=== PATIENT | male | born 1950 | race Caucasian/White ===

== ENCOUNTER 2021-09-19 10:08 | Outpatient (CLI) | payer OTHER, SELFPAY ==
[2021-09-19 10:33] LABS: Slide Review Reflex No
[2021-09-19 14:08] LABS: Cholesterol* 181 mg/dL (90-199)
[2021-09-19 14:09] LABS: HDL Cholesterol* 95 mg/dL (>=40); LDL Cholesterol Calculated 71 mg/dL (<100); Triglycerides* 76 mg/dL (40-149)
[2021-09-19 14:17] LABS: Basophils Absolute Auto 0.03 K/uL (0.00-0.30); Basophils Percent Auto 0.3 % (0.0-3.0); Eosinophils Percent Auto 3.8 % (0.0-7.0); Hematocrit 42.7 % (37.0-53.0); Immature Granulocytes Abs Auto 0.03 K/uL (0.00-0.30); Lymphocytes Percent Auto 14.8 % (20-44); Mean Corpuscular HGB Conc 35 gm/dL (32-36); Mean Corpuscular Hemoglobin 43 pg (26-34); Mean Corpuscular Volume 121 fL (80-100); Neutrophils Percent Auto 73.8 % (42.0-72.0); Platelet Count* 224 K/uL (140-440); RDW Coefficient of Variation % 16.3 % (11.5-15.5); Red Blood Count 3.52 m/uL (4.30-5.90)
[2021-09-20 06:28] LABS: Glucose* 90 mg/dL (60-115)
== END 2021-09-19 10:09 | disposition home or self-care (01) ==
LOC: LKVREF 10:20
PROVIDERS: PCP Physician Assistant Medical; Visit Provider Physician Assistant Medical
DX: I71.4 Abdominal aortic aneurysm, without rupture (principal); R06.00 Dyspnea, unspecified; E53.8 Deficiency of other specified B group vitamins; F10.10 Alcohol abuse, uncomplicated; J44.9 Chronic obstructive pulmonary disease, unspecified; R29.898 Other symptoms and signs involving the musculoskeletal system; Z13.0 Encounter for screening for diseases of the blood and blood-forming organs and certain disorders involving the immune mechanism; Z13.1 Encounter for screening for diabetes mellitus; Z13.6 Encounter for screening for cardiovascular disorders
CPT/HCPCS: 80061; 82947; 85025

== ENCOUNTER 2021-09-20 14:57 | Outpatient (CLI) | payer OTHER, SELFPAY | END 2021-09-20 14:58 | disposition home or self-care (01) | PROVIDERS: PCP Physician Assistant Medical; Visit Provider Physician Assistant Medical | DX: R06.00 Dyspnea, unspecified (principal) | CPT/HCPCS: 93306 ==

== ENCOUNTER 2022-06-10 13:45 | Outpatient (CLI) | payer OTHER, SELFPAY | END 2022-06-10 13:46 | disposition home or self-care (01) | PROVIDERS: PCP Physician Assistant Medical; Visit Provider Physician Assistant Medical | DX: R20.0 Anesthesia of skin (principal); M79.671 Pain in right foot; M79.672 Pain in left foot; E53.8 Deficiency of other specified B group vitamins; R63.4 Abnormal weight loss; R71.8 Other abnormality of red blood cells | CPT/HCPCS: 80053; 82607; 82746; 84153; 84425; 84439; 84443 ==

== ENCOUNTER 2022-06-26 13:57 | Outpatient (CLI) | payer OTHER, SELFPAY ==
--- NOTE | 2022-06-26 14:00 | CRLHL7_ITS ---
For Patients: As a result of the Century Cures Act, medical imaging exams and procedure reports are released immediately into your electronic medical record. You may view this report before your referring provider. If you have questions, please contact your health care provider. Indication: right hydronephrosis; AAA Technique: Postcontrast CT abdomen and pelvis. 70 cc Isovue 370 intravenous contrast. Please note that all CT scans at this facility use dose modulation, iterative reconstruction, and/or weight-based dosing when appropriate to reduce radiation dose to as low as reasonably achievable. Comparison: 06/18/2022, 05/15/2020 Findings: Linear subsegmental scarring is present in both lower lobes. No pleural effusion. Small subcentimeter benign cysts/hemangiomas are present within the liver. The spleen is normal in size. The gallbladder is normal. No calcified gallstones or biliary obstruction. Mild pancreatic atrophy. Extensive atherosclerotic disease. There is an abdominal aortic aneurysm measuring 4.9 x 5.4 cm, located in the infrarenal aorta. 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 The iliac arteries are normal in caliber. The prostate is mildly prominent. No bladder stone. Sigmoid diverticulosis. No diverticulitis. No bowel obstruction. Right hydronephrosis is present. There are several stones within the lower aspect of the right renal collecting system measuring up to 6 millimeters. There is a large stone within the right mid ureter measuring 1 cm resulting in proximal right hydroureter. Additionally, there is an ovoid stone or cluster of stones in the distal left ureter adjacent to the left UVJ with associated mild bladder wall thickening. The left ureter is not distended, however. Left renal stones are present measuring up to 2.2 cm. Degenerative disc disease and facet degeneration are present at L5-S1. There is no compression fracture. Degenerative joint disease of both hips, right greater than left. Impression: Fusiform/bilobed infrarenal abdominal aortic aneurysm with associated chronic dissection and extensive eccentric mural thrombus formation. The aneurysm measures up to 4.9 x 5.4 cm in transaxial dimensions and extends over a length of 9.3 cm. Vascular surgery/interventional radiology consultation recommended. Right hydronephrosis and proximal right hydroureter secondary to a 1 cm stone in the right mid ureter. 8 millimeter stone at the left UVJ with mild thickening of the adjacent bladder wall without obstruction. Sigmoid diverticulosis. No diverticulitis. Simple left renal cortical cysts. Please note that all CT scans at this facility use dose modulation, iterative reconstruction, and/or weight-based dosing when appropriate to reduce radiation dose to as low as reasonably achievable. Dictated by Lv Hough MD @ 06/27/2022 11:00:28 AM (Electronically Signed)
== END 2022-06-26 13:58 | disposition home or self-care (01) ==
LOC: CT 13:57
PROVIDERS: PCP Physician Assistant Medical; Visit Provider Physician Assistant Medical
DX: I71.40 Abdominal aortic aneurysm, without rupture, unspecified (principal); N13.30 Unspecified hydronephrosis; N21.0 Calculus in bladder; K57.30 Diverticulosis of large intestine without perforation or abscess without bleeding; N28.1 Cyst of kidney, acquired
CPT/HCPCS: 74177; Q9967

== ENCOUNTER 2022-11-11 12:48 | Outpatient (CLI) | payer OTHER, SELFPAY ==
--- NOTE | 2022-11-11 13:00 | CRLHL7_ITS ---
For Patients: As a result of the Century Cures Act, medical imaging exams and procedure reports are released immediately into your electronic medical record. You may view this report before your referring provider. If you have questions, please contact your health care provider. INDICATION: Tobacco use. Follow-up previously seen lung abnormality.. TECHNIQUE: Low-dose CT chest without contrast. COMPARISON: Previous CT chest from 06/18/2022.. FINDINGS: Heart is normal in size. No pericardial or pleural effusion. Mild calcified atherosclerotic plaque is seen in the thoracic aorta. No enlarged axillary lymph nodes. Few prominent and mildly enlarged mediastinal lymph nodes are seen, the largest measuring 1.9 by 1.7 centimeter (series 2, image 57), previously 1.8 by 1.7 centimeter. Small calcified right hilar lymph node. Evaluation of noncalcified hilar lymph nodes are limited due to lack of IV contrast. Re-demonstration of large calcified granuloma in the posterior segment of the right upper lobe. Very mild upper lobe predominant emphysema. The central airways are patent. Relatively stable to slight worsening of reticular and interstitial opacities in the subpleural bilateral lungs. No discrete pulmonary nodules are seen. Visualized noncontrast sections through the liver, spleen, pancreas, adrenals and upper kidneys within normal limits. No suspicious bony lesion. IMPRESSION: No suspicious pulmonary nodule. Lung rads category 1: Negative. Continue annual screening with low-dose CT chest. Relatively stable to slight interval worsening of bilateral subpleural reticular and interstitial opacities. Differential diagnoses chronic atypical/viral infection or inflammatory process or early changes of interstitial fibrosis. Follow-up CT chest in 4-6 months recommended. Stable mildly enlarged mediastinal lymph nodes may be reactive. Attention on follow-up exam. Please note that all CT scans at this facility use dose modulation, iterative reconstruction, and/or weight-based dosing when appropriate to reduce radiation dose to as low as reasonably achievable. Dictated by Jhon Muse MD @ 11/12/2022 10:32:12 AM (Electronically Signed)
== END 2022-11-11 12:49 | disposition home or self-care (01) ==
LOC: CT 12:49
PROVIDERS: PCP Physician Assistant Medical; Visit Provider Physician Assistant Medical
DX: Z72.0 Tobacco use (principal); R59.9 Enlarged lymph nodes, unspecified
CPT/HCPCS: 71250

== ENCOUNTER 2022-11-13 12:06 | Outpatient (CLI) | payer OTHER, SELFPAY | END 2022-11-13 12:07 | disposition home or self-care (01) | PROVIDERS: PCP Physician Assistant Medical; Visit Provider Physician Assistant Medical | DX: E53.8 Deficiency of other specified B group vitamins (principal); R63.4 Abnormal weight loss; R71.8 Other abnormality of red blood cells | CPT/HCPCS: 80053; 84439; 84443 ==

== ENCOUNTER 2022-12-18 12:03 | Outpatient (CLI) | payer OTHER, SELFPAY | END 2022-12-18 12:04 | disposition home or self-care (01) | PROVIDERS: PCP Physician Assistant Medical; Visit Provider Physician Assistant Medical | DX: R71.8 Other abnormality of red blood cells (principal); R89.8 Other abnormal findings in specimens from other organs, systems and tissues | CPT/HCPCS: 83540; 83550; 84165; 84443 ==

== ENCOUNTER 2023-01-14 12:12 | Outpatient (CLI) | payer OTHER, SELFPAY ==
--- NOTE | 2023-01-14 11:11 | W.ANESCHARGE ---
Anesthesia Charges Start Date/Time Anesthesia Start Date: 01/14/23 Anesthesia Start Time: 12:55 Stop Date/Time Anesthesia Stop Date: 01/14/23 Anesthesia Stop Time: 13:55 Summary Extremes of Age - Over 70 or under 1: MDA
--- NOTE | 2023-01-14 13:50 | W.ANESCHARGE ---
Anesthesia Charges Start Date/Time Anesthesia Start Date: 01/14/23 Anesthesia Start Time: 12:55 Stop Date/Time Anesthesia Stop Date: 01/14/23 Anesthesia Stop Time: 13:55
== END 2023-01-14 12:13 | disposition home or self-care (01) ==
LOC: OP CLINIC 12:13
PROVIDERS: PCP Physician Assistant Medical; Visit Provider Surgery
DX: Z12.11 Encounter for screening for malignant neoplasm of colon (principal); K63.5 Polyp of colon; K62.1 Rectal polyp; K44.9 Diaphragmatic hernia without obstruction or gangrene; K20.0 Eosinophilic esophagitis
CPT/HCPCS: 00813; 43239; 45380; 45381; 45385; 88305; 99100

== ENCOUNTER 2023-02-18 11:11 | Outpatient (CLI) | payer OTHER, SELFPAY | END 2023-02-18 11:12 | disposition home or self-care (01) | LOC: NFLDREF 02-19 06:48 | PROVIDERS: PCP Physician Assistant Medical; Referring Provider Physician Assistant Medical; Visit Provider Physician Assistant Medical | DX: Z00.00 Encounter for general adult medical examination without abnormal findings (principal); K20.80 Other esophagitis without bleeding; R89.8 Other abnormal findings in specimens from other organs, systems and tissues; Z11.59 Encounter for screening for other viral diseases; Z13.6 Encounter for screening for cardiovascular disorders; Z13.1 Encounter for screening for diabetes mellitus; Z12.5 Encounter for screening for malignant neoplasm of prostate | CPT/HCPCS: 80061; 82947; 84153; 86703; 86803 ==

== ENCOUNTER 2023-03-03 12:55 | Outpatient (CLI) | payer OTHER, SELFPAY ==
--- NOTE | 2023-03-03 13:00 | CRLHL7_ITS ---
For Patients: As a result of the Century Cures Act, medical imaging exams and procedure reports are released immediately into your electronic medical record. You may view this report before your referring provider. If you have questions, please contact your health care provider. Indication: ABNORMAL LUNG FINDINGS Technique: Noncontrast CT chest Please note that all CT scans at this facility use dose modulation, iterative reconstruction, and/or weight-based dosing when appropriate to reduce radiation dose to as low as reasonably achievable. Comparison: 01/22/2023, 11/11/2022 . Findings: No suspicious thyroid lesion. Atherosclerotic changes. Calcified right hilar and mediastinal lymph nodes representing sequela of chronic granulomatous disease. Calcified splenic granuloma. Extrarenal pelvis right kidney. Ectatic proximal abdominal aorta, as visualized. No enlarged intrathoracic lymph nodes. Calcified granuloma in the right upper lobe. Left shoulder replacement hardware. Reticular scarring is present in both upper lobes along with emphysematous changes. No infiltrate or edema. No effusion or pneumothorax. Mild scarring also present within both lower lobes. Bridging osteophyte formation. No fracture Impression: Stable reticular areas of scarring within both upper lobes and to a lesser degree within both lower lobes superimposed upon emphysema. Please note that all CT scans at this facility use dose modulation, iterative reconstruction, and/or weight-based dosing when appropriate to reduce radiation dose to as low as reasonably achievable. Dictated by Lv Hough MD @ 03/04/2023 9:51:51 AM (Electronically Signed)
== END 2023-03-03 12:56 | disposition home or self-care (01) ==
LOC: CT 12:56
PROVIDERS: PCP Physician Assistant Medical; Visit Provider Physician Assistant Medical
DX: R91.8 Other nonspecific abnormal finding of lung field (principal)
CPT/HCPCS: 71250

== ENCOUNTER 2024-08-04 15:28 | Outpatient (CLI) | payer OTHER, SELFPAY | END 2024-08-04 15:29 | disposition home or self-care (01) | PROVIDERS: PCP Physician Assistant Medical; Visit Provider Physician Assistant Medical | DX: R63.4 Abnormal weight loss (principal); R71.8 Other abnormality of red blood cells; R53.81 Other malaise; R29.898 Other symptoms and signs involving the musculoskeletal system; E53.8 Deficiency of other specified B group vitamins; E55.9 Vitamin D deficiency, unspecified; Z12.5 Encounter for screening for malignant neoplasm of prostate | CPT/HCPCS: 80076; 82306; 82607; 82746; 84165; 84425; G0103 ==

== ENCOUNTER 2024-08-12 12:35 | Outpatient (CLI) | payer OTHER, SELFPAY ==
--- NOTE | 2024-08-12 13:00 | CRLHL7_ITS ---
For Patients: As a result of the 21st Century Cures Act, medical imaging exams and procedure reports are released immediately into your electronic medical record. You may view this report before your referring provider. If you have questions, please contact your health care provider. Indication: WT LOSS, Deconditioning Technique: CT Chest/Abd/Pelvis W/79CC [id number] intravenous contrast Please note that all CT scans at this facility use dose modulation, iterative reconstruction, and/or weight-based dosing when appropriate to reduce radiation dose to as low as reasonably achievable. Comparison: Outside images not available Findings: In the chest, there is a calcified granuloma within the right upper lobe. Emphysema with patchy areas of scarring and mild bibasilar fibrosis. No acute CHF, pleural effusion infiltrate. No pneumothorax. Visualized thyroid is within normal limits. Calcified right paratracheal lymph node and calcified right hilar lymph nodes representing sequela of granulomatous disease. Atherosclerotic changes in the aorta. Sub cm prevascular lymph node noted. No fracture. In the abdomen, sub cm cyst in the liver are present. Gallbladder is distended. No gallstones. No biliary obstruction. The pancreas is somewhat atrophied without pancreatic lesion. The spleen is normal in size with incidental calcified granulomas. No adrenal nodule. Small stones involving the lower pole of the right kidney are present. Chronic right-sided hydronephrosis is present related to a chronic stone in the distal right ureter measuring 8.8 millimeters. Left ureter is normal. No hiatal hernia. Fusiform abdominal aortic aneurysm is present which measures 9.7 cm in length and measures up to approximately 5.5 x 6.8 cm in transverse dimensions. In the pelvis, the bladder is incompletely distended. The prostate is not enlarged. Sigmoid diverticulosis. No diverticulitis. No bowel obstruction. No free air or free fluid. No adenopathy. Normal appendix. Degenerative disc disease lower lumbar spine with facet degeneration. No insufficiency fracture. Degenerative joint disease at both hips. Impression: Large fusiform abdominal aortic aneurysm measures 9.7 cm in length and measures up to 6.8 cm in transverse dimension. Please refer to outside reports for further details (these are not available in the [facility] system). Chronic appearing right-sided hydroureteronephrosis with a large stone in the right mid ureter. Chronic small nonobstructing calculi in the lower pole of the right kidney and midportion of the left kidney. Sigmoid diverticulosis without diverticulitis. Pulmonary emphysema/COPD. Mild bilateral fibrosis. Please note that all CT scans at this facility use dose modulation, iterative reconstruction, and/or weight-based dosing when appropriate to reduce radiation dose to as low as reasonably achievable. Dictated by Lv Hough MD @ 08/13/2024 12:13:23 PM (Electronically Signed)
== END 2024-08-12 12:36 | disposition home or self-care (01) ==
LOC: CT 12:36
PROVIDERS: PCP Physician Assistant Medical; Visit Provider Physician Assistant Medical
DX: R63.4 Abnormal weight loss (principal); I71.40 Abdominal aortic aneurysm, without rupture, unspecified; N20.1 Calculus of ureter; N20.0 Calculus of kidney; K57.31 Diverticulosis of large intestine without perforation or abscess with bleeding; J44.9 Chronic obstructive pulmonary disease, unspecified; J43.9 Emphysema, unspecified; R53.81 Other malaise; R71.8 Other abnormality of red blood cells; F10.10 Alcohol abuse, uncomplicated; R91.8 Other nonspecific abnormal finding of lung field
CPT/HCPCS: 71260; 74177; Q9967